=== PATIENT | female | born 1975 | race Caucasian/White ===

== ENCOUNTER 2019-05-24 16:14 | Emergency (ER) | payer SELFPAY ==
[2019-05-24] MEDS ORDERED: AMOXicillin 250 MG CAP ONE (16:26)
[2019-05-24] MEDS ORDERED: HYDROcodone/Acetaminophen 10/325 mg Tablet ONE (16:26)
== END 2019-05-24 16:29 | disposition home or self-care (01) ==
LOC: BURERS 16:14
DX: K08.89 Other specified disorders of teeth and supporting structures (principal); H61.22 Impacted cerumen, left ear; F17.210 Nicotine dependence, cigarettes, uncomplicated
CPT/HCPCS: 99282

== ENCOUNTER 2019-06-21 18:45 | Emergency (ER) | payer SELFPAY | END 2019-06-21 19:00 | disposition home or self-care (01) | LOC: BURERS 18:45 | DX: K08.89 Other specified disorders of teeth and supporting structures (principal); F43.10 Post-traumatic stress disorder, unspecified; F17.210 Nicotine dependence, cigarettes, uncomplicated; Z79.899 Other long term (current) drug therapy | CPT/HCPCS: 99282 ==

== ENCOUNTER 2021-04-23 10:45 | Emergency (ER) | payer SELFPAY | END 2021-04-23 11:29 | disposition home or self-care (01) | LOC: BURERS 10:45 | DX: S90.32XA Contusion of left foot, initial encounter (principal); F17.210 Nicotine dependence, cigarettes, uncomplicated; W19.XXXA Unspecified fall, initial encounter ==

== ENCOUNTER 2021-05-04 08:56 | Emergency (ER) | payer SELFPAY | END 2021-05-04 09:46 | disposition home or self-care (01) | LOC: BURERS 08:56 | DX: F41.9 Anxiety disorder, unspecified (principal); Z76.0 Encounter for issue of repeat prescription; F17.210 Nicotine dependence, cigarettes, uncomplicated | CPT/HCPCS: 99283 ==

== ENCOUNTER 2021-09-18 10:51 | Emergency (ER) | payer SELFPAY | END 2021-09-18 11:09 | disposition home or self-care (01) | LOC: BURERS 10:51 | DX: F41.9 Anxiety disorder, unspecified (principal); F17.210 Nicotine dependence, cigarettes, uncomplicated; Z76.0 Encounter for issue of repeat prescription; Z79.899 Other long term (current) drug therapy | CPT/HCPCS: 99281 ==